=== PATIENT | male | born 1970 | race American Indian/Alaskan Native ===

== ENCOUNTER 2018-02-23 12:50 | Emergency (ER) | payer SELFPAY ==
[2018-02-23] MEDS ORDERED: ZOFRAN ODT PO ONE (15:57)
[2018-02-23] MEDS ORDERED: IBUPROFEN PO ONE (15:57)
[2018-02-23] MEDS ORDERED: NORCO 5/325 PO ONE (15:57)
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
[2018-02-23 16:35] VITALS: BP 120/58
== END 2018-02-23 16:34 | disposition home or self-care (01) ==
LOC: ED 12:50
DX: S29.012A Strain of muscle and tendon of back wall of thorax, initial encounter (principal); S16.1XXA Strain of muscle, fascia and tendon at neck level, initial encounter; F17.200 Nicotine dependence, unspecified, uncomplicated; V59.59XA Passenger in pick-up truck or van injured in collision with other motor vehicles in traffic accident, initial encounter; Y93.89 Activity, other specified; Y92.488 Other paved roadways as the place of occurrence of the external cause; Y99.8 Other external cause status
CPT/HCPCS: 99283; Q0162